=== PATIENT | male | born 1940 | race Caucasian/White ===

== ENCOUNTER → 2020-11-23 | Outpatient (CLI) | payer MEDICARE ==
--- NOTE | 2020-11-23 15:38 | RAD ---
EXAM: Right foot, 3 views. HISTORY: Pain. COMPARISON: None. FINDINGS: 3 views of the right foot are obtained. There is no acute fracture, dislocation or subluxat ion. There is a small plantar spur. There is enthesopathy at the Achilles tendon insertion. No foreig n body is seen. There are vascular calcifications. IMPRESSION: No acute osseous finding. Electronically signed by: Ayana Yeager MD (11/23/2020 3:36 PM) [id number]
== END ==
LOC: RAD 15:20
PROVIDERS: ATTEND Family Medicine
DX: M77.31 Calcaneal spur, right foot (principal); M76.61 Achilles tendinitis, right leg; M25.871 Other specified joint disorders, right ankle and foot
CPT/HCPCS: 73630